=== PATIENT | male | born 1965 | race Caucasian/White ===

== ENCOUNTER 2019-12-16 13:18 | Emergency (ER) | payer MEDICARE, MEDICAID ==
[2019-12-16] MEDS ORDERED: Lidocaine 1% with EPINEPHrine 1:100,000 50 ML MDV SUBCUT STA (13:57)
--- NOTE | 2019-12-16 14:03 | EDM.PDOC ---
ED HPI GENERAL MEDICAL PROBLEM - General Chief Complaint: Skin Complaint Stated Complaint: MEDICAL Time Seen by Provider: 12/16/19 13:50 Source of Information: Reports: Patient, Old Records, RN History Limitations: Reports: No Limitations - History of Present Illness INITIAL COMMENTS - FREE TEXT/NARRATIVE: 54 [facility] abscess on his upper lip. The patient relates that he was sent for I & D. No one from the clinic called the ER to discuss. Sx's began 3 days ago. Was seen also yesterday in the clinic and started on Augmentin, but has gotten worse since then. No fever. No drainage. Onset: Gradual Onset Date: 12/13/19 Duration: Day(s):, Getting Worse Location: Reports: Face (upper lip, R side) Quality: Reports: Pressure Severity: Mild Improves with: Reports: None Worsens with: Reports: Other (time) Context: Reports: Other (see HPI) Associated Symptoms: Reports: No Other Symptoms Treatments [employer]IPMENT [employer]: Reports: Other (see below) (Augmentin) - Related Data Allergies Allergy/AdvReac Type Severity Reaction Status Date / Time No Known Allergies Allergy Verified 12/16/19 13:29 Home Meds: Home Meds Amoxicillin/Clavulanate K [Augmentin 875-125 MG] 1 tab PO BID 12/16/19 [History] Betamethasone/Propylene Glyc [Betamethasone Dp Aug 0.05% Oin] 1 applic TOP BID PRN 12/16/19 [History] Docusate Sodium [Colace Clear] 50 mg PO DAILY PRN 12/16/19 [History] Ibuprofen 2 - 3 tab PO Q6HR PRN 12/16/19 [History] Ketoconazole [Ketoconazole 2%] 1 applic TOP BID 12/16/19 [History] Wheat Dextrin [Benefiber] 3 gm PO DAILY PRN 12/16/19 [History] polyethylene glycoL 3350 [MiraLAX] 17 gm PO DAILY PRN 12/16/19 [History] Past Medical History HEENT History: Reports: None Genitourinary History: Reports: Urinary Incontinence Musculoskeletal History: Reports: Other (See Below) Other Musculoskeletal History: cerebral palsy Neurological History: Reports: Cerebral Palsy Dermatologic History: Reports: Eczema - Past Surgical History Head Surgeries/Procedures: Reports: None HEENT Surgical History: Reports: Other (See Below) Other HEENT Surgeries/Procedures: erosive esophagitis, epigastric pain Neurological Surgical History: Reports: None Dermatological Surgical History: Reports: None Social & Family History - Tobacco Use Smoking Status *Q: Never Smoker Second Hand Smoke Exposure: No - Caffeine Use Caffeine Use: Reports: Coffee - Recreational Drug Use Recreational Drug Use: No ED ROS GENERAL - Review of Systems Review Of Systems: See Below Constitutional: Reports: No Symptoms HEENT: Reports: No Symptoms Respiratory: Reports: No Symptoms Cardiovascular: Reports: No Symptoms GI/Abdominal: Reports: No Symptoms Skin: Reports: Erythema (and localized swelling R side of face above the lip. ) , Lumps (abscess formation above R side of upper lip. ) Neurological: Reports: No Symptoms ED EXAM, SKIN/RASH Exam: See Below Exam Limited By: No Limitations General Appearance: Alert, WD/WN, No Apparent Distress Extremities: Normal Inspection Neurological: Alert, Oriented, CN II-XII Intact, No Motor/Sensory Deficits, Other (cerebral palsy, communicates effectively with a lap top. ) Skin: Warm, Dry, Intact, Erythema, Increased Warmth, Other (abscess above upper lip on right. ). No: Normal Color Location, Skin: Face Characteristics: Other (abscess) Associated features: Tenderness, Induration ED SKIN PROCEDURES - I&D Site: face Skin Prep: Providone-Iodine (Betadine) Local Anesthesia: Lidocaine: 1% with EPI Local Anesthetic Volume: 2cc Area Incised With: 11 Blade Drainage: Purulent, Moderate Amount Probed to Break Up Loculations: Yes Packed With: 1/4 in. Iodoform Complications: No Course - Vital Signs Last Recorded V/S: Last Vital Signs Temp 36.8 C 12/16/19 13:56 Pulse 64 12/16/19 13:56 Resp 22 H 12/16/19 13:56 BP 150/96 H 12/16/19 13:56 Pulse Ox 98 12/16/19 13:56 - Orders/Labs/Meds Orders: Active Orders 24 hr Category Date Time Status CULTURE WOUND + SMEAR [RM] Stat Lab 12/16/19 14:21 Ordered Meds: Medications Discontinued Medications Generic Name Dose Route Start Last Admin Trade Name Freq PRN Reason Stop Dose Admin Lidocaine/Epinephrine 5 ml 12/16/19 13:57 01/24/20 14:04 Xylocaine 1% With Epinephrine 1:100,000 SUBCUT 12/16/19 13:58 5 ml NOW STA Administration Departure - Departure Time of Disposition: 14:23 Disposition: Home, Self-Care 01 Condition: Fair Clinical Impression: Facial abscess - Discharge Information *PRESCRIPTION DRUG MONITORING PROGRAM REVIEWED*: No *COPY OF PRESCRIPTION DRUG MONITORING REPORT IN PATIENT JUAN: No Instructions: Skin Abscess, [id number] Referrals: PCP,None [Primary Care Provider] - Forms: ED Department Discharge Additional Instructions: Leave wick in place until seen in the clinic Thursday morning. Take acetaminophen as needed for pain relief. Continue the Augmentin as currently. Let the clinic know a culture was set up. Change the dressing as needed, but don't disturb the wick. Sepsis Event Note - Evaluation Sepsis Screening Result: No Definite Risk - Focused Exam Vital Signs: Vital Signs Temp Pulse Resp BP Pulse Ox 12/16/19 13:56 36.8 C 64 22 H 150/96 H 98 12/16/19 13:42 36.8 C 64 22 H 150/96 H 98 Date Exam was Performed: 12/16/19 Time Exam was Performed: 14:22 - My Orders Last 24 Hours: My Active Orders 12/16/19 14:21 CULTURE WOUND + SMEAR [RM] Stat - Assessment/Plan Last 24 Hours: My Active Orders 12/16/19 14:21 CULTURE WOUND + SMEAR [RM] Stat
== END 2019-12-16 14:37 | disposition home or self-care (01) ==
LOC: JP.ED 13:18
DX: L02.01 Cutaneous abscess of face (principal)
CPT/HCPCS: 10060; 87070; 87077; 87205; 99283; 99283-25